=== PATIENT | female | born 1960 | race African-American/Black ===

== ENCOUNTER → 2016-04-13 | Outpatient (CLI) | payer OTHER ==
[~2016-04-13] MED LIST: ALDACTONE25 MG PO; AMLODIPINE BESY10 MG PO; ASPIRIN81 MG PO; CARDURA8 MG PO; CIPRO PO; CLONIDINE HCL0.1 MG PO; DILTIAZEM ER60 MG PO; GLIMEPIRIDE1 M1 PO; GLUCOPHAGE500 MG PO; GUAIFENESIN600 M1 PO; HCTZ PO; HYDROCHLOROTHIA25 MG PO; K-DUR20 ME2 PO; LORTAB 5-325 M1 EACH PO; LOSARTAN POTAS100 MG PO; LOSARTAN POTASS25 MG PO; METFORMIN HCL500 M1 PO; METFORMIN PO; METOPROLOL SUC100 MG PO; MULTIPLE VITAMI1 T11 PO; NIFEDIPINE ER90 M2 PO; PERCOCET5/325 PO; PRAVASTATIN SOD20 MG PO; SERTRALINE HCL25 M1 PO; SIMVASTATIN5 MG PO; ST JOSEPH ASPIR81 MG PO; ULTRAM PO
--- NOTE | ~2016-04-13 | CR169 ---
[facility] A Service of [facility] RADIOLOGY TEXT RESULTS PATIENT: MELANIE FERNANDEZ LOCATION: [facility] : 60 UNIT #: [id number] AGE: [address]: Parmjit Rodas MD SEX: F ORDER DR: [id number] [place], [place] [address] [id number] MR#: [id number] Acc #: [id number] NAME: MELANIE FERNANDEZ : 1960 SEX: F STUDY DATE/TIME: 04/13/2016 9:07 UNIT: [facility] ROOM: STUDY DESCRIPTION: CR Knee 2 Views Lt Attending Physician: Parmjit Rodas M.D. Referring Physician: Parmjit Rodas M.D. Ordering Physician: Parmjit Rodas M.D. Primary Care Physician: Parmjit Rodas M.D. MEDICAL IMAGING REPORT This report is preliminary unless electronic signature is present EXAM Left knee 04/13/2016 HISTORY 55-year-old female with left knee pain for 3 weeks. No specific injury. COMPARISON None. FINDINGS 2 views of the left knee demonstrate no acute fracture or dislocation. No joint effusion. [id number] degenerative change of the medial compartment. Mild degenerative change of the patellofemoral joint. Soft tissues are unremarkable. IMPRESSION 1. No acute fracture or dislocation. 2. 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 Dictated by... Urbano Jarvis M.D. THIS IS AN ELECTRONICALLY VERIFIED REPORT Urbano Jarvis M.D. at 04/14/2016 4:54 PM DUNCAN/ash TD: 04/13/2016 12:59 JOB #: [id number] MEDICAL IMAGING REPORT [facility] [place] [facility] TEXT RESULTS PATIENT: MELANIE FERNANDEZ LOCATION: [facility] : 60 UNIT #: [id number] AGE: [address]: Parmjit Rodas MD SEX: F ORDER DR: LIZA
== END | disposition home or self-care (01) ==
LOC: CRAD 08:55
DX: M25.562 Pain in left knee (principal); M17.12 Unilateral primary osteoarthritis, left knee
CPT/HCPCS: 73560